=== PATIENT | female | born 1955 | race Caucasian/White ===

== ENCOUNTER 2022-02-25 05:42 | Outpatient (CLI) | payer MEDICARE ==
[~2022-02-25] VITALS: Ht 157.5 cm; Wt 81.8 kg
[2022-02-25] MEDS ORDERED: SIMV20TA26 PO (16:58)
[2022-02-25] MEDS ORDERED: METF-397 PO (16:58)
[2022-02-25] MEDS ORDERED: PHEN-483 PO (16:58)
[2022-02-25] MEDS ORDERED: LISI30TA5 PO (16:58)
== END 2022-02-25 16:58 | disposition home or self-care (01) ==
LOC: PREOP 05:42
PROVIDERS: ATTEND Specialist
DX: Z01.818 Encounter for other preprocedural examination (principal)

== ENCOUNTER 2022-03-01 10:57 | Day surgery (SDC) | payer MEDICARE, OTHER ==
[~2022-03-01] VITALS: Ht 157.5 cm; Wt 81.8 kg
[~2022-03-01 10:57] MED LIST: LISI30TA5 PO; METF-397 PO; PHEN-483 PO; SIMV20TA26 PO
[2022-03-01] MEDS ORDERED: TIMOLOL MALEATE 0.5% 5 ML (TIMOPTIC) BTL OU PRN (11:30)
[2022-03-01] MEDS ORDERED: acetaZOLAMIDE ER 500 MG CAP (DIAMOX SEQUELS) PO ONE (11:30)
[2022-03-01] MEDS ORDERED: MOXIFLOXACIN OPHTH SOLN 5 MG/ML 0.3 ML SYRINGE OP ONE (11:30)
[2022-03-01] MEDS ORDERED: POVIDONE (BETADINE) OPHTH SOLN 5% 30 ML OP ONE (11:30)
[2022-03-01] MEDS: TETRACAINE 0.5% OPHTH SOLN 4 ML BTL (SINGLE DOSE ONLY) OU PRN ×4 (11:37→11:55)
[2022-03-01 11:41] VITALS: BP 146/83
[2022-03-01] MEDS: PHENYLEPHRINE 10% OPHTH (NEO-SYN) 5 ML BTL OU SCH ×3 (11:43→11:55)
[2022-03-01] MEDS: TROPICAMIDE 1% OPH SOLN (MYDRIACYL) 15 ML BTL OP SCH ×3 (11:43→11:55)
[2022-03-01] MEDS ORDERED: MIDAZOLAM 2 MG/2 ML (VERSED) VIAL ONE (12:33)
--- NOTE | 2022-03-01 13:00 | Ophthalmologist Pre-Op Note ---
Pre-Operative Progress Note H&P Reviewed The H&P was reviewed, patient examined and no changes noted. Date H&P Reviewed: Mar 01, 2022 Time H&P Reviewed: 12:40 Pre-Op Dx Cataract, Right Eye LUCINA GUTIERREZ MD Mar 01, 2022 13:00
--- NOTE | 2022-03-01 13:01 | Ophthalmology Operative Report ---
Cataract removal/placement IOL PREOPERATIVE DIAGNOSIS: Cataract Right Eye POSTOPERATIVE DIAGNOSIS: Cataract Right Eye PROCEDURE: Cataract removal and placement of posterior chamber implant, right eye SURGEON: Otis Gutierrez ANESTHESIA: Topical with sedation COMPLICATIONS: None ESTIMATED BLOOD LOSS: Minimal DESCRIPTION OF PROCEDURE: After proper informed consent was obtained, the patient, a 66 female, was taken to the Operating Room and the right eye was anesthetized with tetracaine. The right eye was then prepped and draped in the usual manner. A wire lid speculum was placed. A paracentesis was made at the left hand position. Preservative free lidocaine was injected into the anterior chamber followed by viscoelastic. A clear corneal incision was made in the temporal position. A capsulorrhexis was preformed and the central nuclear and cortical material were removed. The posterior capsule was polished and Dwayne 20.5 AU00T0 IOL was placed into the capsular bag. The residual viscoelastic was aspirated and balanced saline solution was injected into the anterior chamber. Moxifloxacin was injected into the anterior chamber. The wound was checked and found to be water tight. The patient tolerated the procedure well without complications. OTIS GUTIERREZ MD Mar 01, 2022 13:01
[2022-03-01 13:03] VITALS: BP 147/77
--- NOTE | 2022-03-01 14:44 | Anesthesia-General Post-Op ---
MAC Patient Condition Mental Status/LOC: Same as Preop Cardiovascular: Satisfactory Nausea/Vomiting: Absent Respiratory: Satisfactory Pain: Controlled Complications: Absent Post Op Complications Complications None Follow Up Care/Instructions Patient Instructions None needed. Anesthesiology Discharge Order Discharge Order Patient is doing well, no complaints, stable vital signs, no apparent adverse anesthesia problems. No complications reported per nursing. RACHAEL FINNEY CRNA Mar 01, 2022 14:44
== END 2022-03-01 13:05 | disposition home or self-care (01) ==
LOC: SDC 10:57
PROVIDERS: ATTEND Specialist
DX: H25.9 Unspecified age-related cataract (principal)
CPT/HCPCS: 66984; V2632

== ENCOUNTER → 2022-04-12 | Outpatient (CLI) | payer MEDICARE | LOC: PREOP 11:47 | PROVIDERS: ATTEND Specialist | DX: Z01.818 Encounter for other preprocedural examination (principal) ==

== ENCOUNTER 2022-10-24 05:37 | Outpatient (CLI) | payer MEDICARE ==
[~2022-10-24] VITALS: Ht 157.4 cm; Wt 81.8 kg
[2022-10-28] MEDS ORDERED: SEMA3TAB4 PO (14:09)
== END 2022-10-28 14:10 ==
LOC: PREOP 05:37
PROVIDERS: ATTEND Specialist
DX: Z01.818 Encounter for other preprocedural examination (principal); H25.12 Age-related nuclear cataract, left eye

== ENCOUNTER 2022-11-01 10:03 | Day surgery (SDC) | payer MEDICARE ==
[~2022-11-01] VITALS: Ht 157.4 cm; Wt 81.8 kg
[~2022-11-01 10:03] MED LIST changes: +SEMA3TAB4 PO
[2022-11-01] MEDS: TETRACAINE 0.5% OPHTH SOLN 4 ML BTL (SINGLE DOSE ONLY) OU PRN ×4 (10:28→10:46)
[2022-11-01] MEDS ORDERED: POVIDONE (BETADINE) OPHTH SOLN 5% 30 ML OP ONE (10:30)
[2022-11-01] MEDS ORDERED: MOXIFLOXACIN OPHTH SOLN 5 MG/ML 0.3 ML SYRINGE OP ONE (10:30)
[2022-11-01] MEDS ORDERED: TIMOLOL 0.5% (CATARACTS) 0.3 ML BTL OU PRN (10:30)
[2022-11-01] MEDS: PHENYLEPHRINE 10% OPHTH (NEO-SYN) 5 ML BTL OU SCH ×3 (10:35→10:46)
[2022-11-01] MEDS: TROPICAMIDE 1% OPH SOLN (MYDRIACYL) 15 ML BTL OP SCH ×3 (10:35→10:46)
[2022-11-01 10:38] VITALS: BP 129/73
--- NOTE | 2022-11-01 11:10 | Ophthalmologist Pre-Op Note ---
Pre-Operative Progress Note H&P Reviewed The H&P was reviewed, patient examined and no changes noted. Date H&P Reviewed: November 01, 2022 Time H&P Reviewed: 11:09 Pre-Op Dx Cataract, Left Eye LUCINA GUTIERREZ MD November 01, 2022 11:10
--- NOTE | 2022-11-01 11:31 | Ophthalmology Operative Report ---
Cataract removal/placement IOL PREOPERATIVE DIAGNOSIS: Cataract Left Eye POSTOPERATIVE DIAGNOSIS: Cataract Left Eye PROCEDURE: Cataract removal and placement of posterior chamber implant, left eye SURGEON: Otis Gutierrez ANESTHESIA: Topical with sedation COMPLICATIONS: None ESTIMATED BLOOD LOSS: Minimal DESCRIPTION OF PROCEDURE: After proper informed consent was obtained, the patient, a 67 female, was taken to the Operating Room and the left eye was anesthetized with tetracaine. The left eye was then prepped and draped in the usual manner. A wire lid speculum was placed. A paracentesis was made at the left hand position. Preservative free lidocaine was injected into the anterior chamber followed by viscoelastic. A clear corneal incision was made in the temporal position. A capsulorrhexis was preformed and the central nuclear and cortical material were removed. The posterior capsule was polished and an Dwayne 24.0 AU00T0 was placed into the capsular bag. The residual viscoelastic was aspirated and balanced saline solution was injected into the anterior chamber. Moxifloxacin was injected into the anterior chamber. The wound was checked and found to be water tight. The patient tolerated the procedure well without complications. OTIS GUTIERREZ MD November 01, 2022 11:31
[2022-11-01 11:32] VITALS: BP 163/74
--- NOTE | 2022-11-01 12:27 | Anesthesia-General Post-Op ---
MAC Patient Condition Mental Status/LOC: Same as Preop Cardiovascular: Satisfactory Nausea/Vomiting: Absent Respiratory: Satisfactory Pain: Controlled Complications: Absent Post Op Complications Complications None Follow Up Care/Instructions Patient Instructions None needed. Anesthesiology Discharge Order Discharge Order Patient is doing well, no complaints, stable vital signs, no apparent adverse anesthesia problems. No complications reported per nursing. YUKI KINSEY CRNA November 01, 2022 12:27
[2022-11-01] MEDS ORDERED: acetaZOLAMIDE ER 500 MG CAP (DIAMOX SEQUELS) PO ONE (12:30)
== END 2022-11-01 11:33 | disposition home or self-care (01) ==
LOC: SDC 10:03
PROVIDERS: ATTEND Specialist
DX: E11.36 Type 2 diabetes mellitus with diabetic cataract (principal); H25.9 Unspecified age-related cataract
CPT/HCPCS: 66984; 82947; V2632